=== PATIENT | male | born 1975 | race American Indian/Alaskan Native ===

== ENCOUNTER 2022-03-05 11:02 | Emergency (ER) | payer SELFPAY ==
[2022-03-05 11:25] VITALS: BP 112/77
--- NOTE | 2022-03-05 11:50 | Emergency Department Report ---
ED Rash HPI - HPI Chief Complaint: Skin Rash Stated Complaint: THINKS HAS MONKEY POX Time Seen by Provider: 03/05/22 11:48 Duration: 3 Days Location: Other Suspected Cause: Unknown Rash Symptoms: No Itching, No Facial Swelling, No Tongue/Oral Swelling, No Breathing Difficulties, No Choking Sensation, No Wheezing/Dyspnea, No Peeling, No Blistering, No Fever, No Malaise, No Myalgias Severity: mild Other History: RASH ON LEFT SHOULDER- PT CO FOR MONKEY POX. NO EXPOSURE. NO SYSTEMIC SYMPTOMS. VS NORMAL. NO FEVER OR CHILLS ED Review of Systems ROS: Stated complaint: THINKS HAS MONKEY POX Other details as noted in HPI Comment: All other systems reviewed and negative ED Past Medical Hx - Past Medical History Previous Medical History?: Yes Hx Hypertension: Yes - Surgical History Past Surgical History?: Yes Additional Surgical History: Left ankle - Family History Family history: no significant - Social History Smoking Status: Never Smoker Substance Use Type: None Rash Exam - Exam General: Vital signs noted. No distress. Alert and acting appropriately. HEENT: No Periorbital Edema, No Conjuctival Injection, No Chemosis, No Perioral Edema, No Tongue Edema, No Uvular Edema, No Compromised Airway, No Drooling Lungs: Yes Good Air Exchange (Normal Breath Sounds), No Wheezes, No Ronchi, No Stridor, No Cough, No Labored Respirations, No Retractions, No Use of Accessory Muscles, No Other Abnormal Lung Sounds Heart: Yes Regular, No Murmur Front/Back of Body, Lg (Color): 1 - DRY IRRITATED SKIN. Skin: Yes Other Other: Positive: Abdomen Normal, Neurologic Normal, Musculoskeletal Normal ED Course Vital Signs 03/05/22 11:24 Temperature 97.9 F Pulse Rate 80 Respiratory 20 Rate Blood Pressure 112/77 [Right] O2 Sat by Pulse 99 Oximetry ED Medical Decision Making - Medical Decision Making NO SYSTEMIC SYMPTOMS Vital Signs 03/05/22 11:24 Temperature 97.9 F Pulse Rate 80 Respiratory 20 Rate Blood Pressure 112/77 [Right] O2 Sat by Pulse 99 Oximetry REQUESTING WORK NOTE DC HOME WITH PCP FOLLOW UP - Differential Diagnosis CONTACT DERM Critical care attestation.: If time is entered above; I have spent that time in minutes in the direct care of this critically ill patient, excluding procedure time. ED Disposition Clinical Impression: Contact dermatitis Disposition: 01 HOME / SELF CARE / HOMELESS Is pt being admited?: No Does the pt Need Aspirin: No Condition: Stable Instructions: Contact Dermatitis Additional Instructions: NO MONKEY POX EUCERNIN CREAM OVER THE COUNTER FOR IRRITATION FOLLOW UP WITH PCP IF NEEDED REFERRAL BELOW Referrals: GEORGE MARTIN MD [Staff Physician] - 3-5 Days Forms: Work/School Release Form(ED) Time of Disposition: 11:49
== END 2022-03-05 12:17 | disposition home or self-care (01) ==
LOC: ED 11:02
DX: L25.9 Unspecified contact dermatitis, unspecified cause (principal); I10 Essential (primary) hypertension; Z98.890 Other specified postprocedural states; Z79.899 Other long term (current) drug therapy
CPT/HCPCS: 99282